=== PATIENT | female | born 1985 | race Two or more races ===

== ENCOUNTER 2018-11-06 11:36 | Emergency (ER) | payer MEDICAID ==
[~2018-11-06] VITALS: Ht 162.6 cm; Wt 80.7 kg
[2018-11-06 11:37] VITALS: BP 119/67
== END 2018-11-06 13:57 | disposition home or self-care (01) ==
LOC: ER 11:36
DX: J02.9 Acute pharyngitis, unspecified (principal)

== ENCOUNTER 2019-09-01 14:32 | Emergency (ER) | payer MEDICAID ==
[~2019-09-01] VITALS: Ht 162.6 cm; Wt 84.4 kg
[2019-09-01 14:54] VITALS: BP 108/62
[2019-09-01 16:35] LABS: Urine Bacteria FEW /hpf (None Seen); Urine Blood 3+ /uL (Negative); Urine Mucus FEW (None Seen); Urine Specific Gravity 1.017 (1.001-1.035); Urine WBC 43 /hpf (0 - 5)
== END 2019-09-01 19:44 | disposition home or self-care (01) ==
LOC: ER 14:37
DX: N39.0 Urinary tract infection, site not specified (principal); T83.32XA Displacement of intrauterine contraceptive device, initial encounter; Y84.9 Medical procedure, unspecified as the cause of abnormal reaction of the patient, or of later complication, without mention of misadventure at the time of the procedure; Y92.89 Other specified places as the place of occurrence of the external cause
CPT/HCPCS: 76830; 76856; 81001; 81025

== ENCOUNTER 2019-11-30 04:26 | Emergency (ER) | payer MEDICAID ==
[~2019-11-30] VITALS: Ht 160 cm; Wt 88.9 kg
[2019-11-30 05:28] VITALS: BP 116/77
[2019-11-30 07:31] LABS: Basophils # (auto) 0 10 ^3/uL (0-0.2); Basophils % (auto) 0.2 % (0.0-2.0); Eosinophils # (auto) 0 10 ^3/uL (0-0.8); Eosinophils % (auto) 0.3 % (0.0-7.0); Hematocrit 42.3 % (36.0-46.0); Hemoglobin 13.8 g/dL (12.2-16.2); Lymphocytes # (auto) 1.3 10 ^3/uL (0.4-5.4); Lymphocytes % (auto) 12.9 % (10.0-50.0); Mean Corpuscular Hemoglobin 28.1 pg (28.0-32.0); Mean Corpuscular Hgb Conc. 32.7 g/dL (32.0-36.0); Mean Corpuscular Volume 86.1 fL (80.0-100.0); Monocytes # (auto) 0.7 10 ^3/uL (0-1.3); Monocytes % (auto) 6.6 % (0.0-12.0); Neutrophils # (auto) 8.1 10 ^3/uL (1.6-8.6); Platelet Count (auto) 386 10^3/uL (140-450); Red Blood Cells 4.91 10^6/uL (4.0-5.20); Red Cell Distribution Width 14.8 % (11.8-14.3); White Blood Cell 10.1 10^3/uL (4.4-10.8)
[2019-11-30 07:47] LABS: Albumin 3.8 g/dL (3.4-5.0); Anion Gap 3 (5-15); Blood Urea Nitrogen 7 mg/dL (7-18); Calcium 8.8 mg/dL (8.5-10.1); Carbon Dioxide 29 mmol/L (21-32); Chloride 106 mmol/L (98-107); Glucose 105 mg/dL (74-106); Magnesium 2.7 mg/dL (1.6-2.6); Potassium 4.4 mmol/L (3.5-5.1); Sodium 138 mmol/L (136-145)
[2019-11-30 07:52] LABS: Alanine Aminotransferase 24 U/L (13-56); Alkaline Phosphatase 108 U/L (45-117); Aspartate Aminotransferase 18 U/L (15-37); BUN/Creatinine Ratio 8.4; Bilirubin, Total 0.9 mg/dL (0.2-1.0); GFR African American 102 mL/min; GFR Non-African American 85 mL/min; Total Protein 8.6 g/dL (6.4-8.2)
[2019-11-30] MEDS ORDERED: cefTRIAXone SOD 1,000 MG VL IM ONE (08:30)
[2019-11-30] MEDS ORDERED: methylPREDNISolone SOD SUCC 125 MG/2 ML VL IM ONE (08:30)
== END 2019-11-30 09:44 | disposition home or self-care (01) ==
LOC: ER 04:26
DX: R22.1 Localized swelling, mass and lump, neck (principal); R53.1 Weakness
CPT/HCPCS: 36415; 80053; 81002; 81025; 83735; 83880; 84443; 84484; 85025; 87804; 87880; 96372; 99284; J0696; J2930

== ENCOUNTER 2021-02-27 19:37 | Emergency (ER) | payer MEDICAID ==
[~2021-02-27] VITALS: Ht 162.6 cm; Wt 79.4 kg
[2021-02-27 20:06] VITALS: BP 115/76
[2021-02-27] MEDS ORDERED: KETOROLAC TROMETH 60MG/2ML VIAL IM ONE (21:30)
[2021-02-27] MEDS ORDERED: methylPREDNISolone SOD SUCC 125 MG/2 ML VL IM ONE (21:30)
== END 2021-02-27 22:33 | disposition home or self-care (01) ==
LOC: ER 19:40
DX: G44.209 Tension-type headache, unspecified, not intractable (principal); M62.838 Other muscle spasm; E66.9 Obesity, unspecified; F32.9 Major depressive disorder, single episode, unspecified; Z68.30 Body mass index [BMI] 30.0-30.9, adult
CPT/HCPCS: 72040; 96372; 99284; J1885; J2930

== ENCOUNTER 2022-01-28 09:35 | Emergency (ER) | payer MEDICAID ==
[~2022-01-28] VITALS: Ht 162.6 cm; Wt 81.2 kg
[2022-01-28 11:28] VITALS: BP 114/67
== END 2022-01-28 12:33 | disposition home or self-care (01) ==
LOC: ER 09:35
DX: R50.9 Fever, unspecified (principal); R51.9 Headache, unspecified; Z86.2 Personal history of diseases of the blood and blood-forming organs and certain disorders involving the immune mechanism; Z20.822 Contact with and (suspected) exposure to COVID-19
CPT/HCPCS: 36415

== ENCOUNTER 2025-03-22 08:15 | Emergency (ER) | payer MEDICAID ==
[~2025-03-22] VITALS: Ht 160 cm; Wt 84.0 kg
--- NOTE | 2025-03-22 08:53 | ED.PDOC ---
General HPI Comments 40 year old female presents to the ED with a chief complaint of pelvic pain onset 1 month. Patient states she has been experiencing pelvic pain for the past month, has an appointment with PCP in May 2025. Patient states for the past week, she noticed tingling sensation radiating to bilateral legs. PMhx anemia, depression. Denies fever, chills, nausea, vomiting, abdominal pain, chest pain, shortness of breath, headache, dizziness. No other symptoms or modifying factors present at this time. Chief Complaint: Pelvic Pain Time Seen by MD: 08:40 Primary Care Provider: OUT OF TOWN Reviewed notes: Medications, Allergies Allergies: Coded Allergies: NO KNOWN ALLERGIES (Unverified , 09/01/19) Information Source: Patient Mode of Arrival: Ambulatory Severity: Moderate Timing: Months Duration: Since onset Prehospital treatment: None Onset: Spontaneous Symptoms: Other History of: None Location: None Past Medical History PAST MEDICAL HISTORY: Anemia, Depression Surgical History: Hysterectomy [employer] History: No Pertinent [employer] History Family History Family History: Unknown Social History Smoker: Non-Smoker Alcohol: Denies ETOH Use Drugs: Denies Drug Use Lives In: Home Constitutional: denies: chills, diaphoresis, fatigue, fever, malaise, sweats, weakness, others EENTM: denies: blurred vision, double vision, ear bleeding, ear discharge, ear drainage, ear pain, ear ringing, eye pain, eye redness, hearing loss, mouth pain, mouth swelling, nasal discharge, nose bleeding, nose congestion, nose pain, photophobia, tearing, throat pain, throat swelling, voice changes, others Respiratory: denies: cough, hemoptysis, orthopnea, SOB at rest, shortness of breath, SOB with excertion, stridor, wheezing, others Cardiovascular: denies: chest pain, dizzy spells, diaphoresis, Dyspnea on exertion, edema, irregular heart beat, left arm pain, lightheadedness, palpitations, PND, syncope, others Gastrointestinal: denies: abdomen distended, abdominal pain, blood streaked bowels, constipated, diarrhea, dysphagia, difficulty swallowing, hematemesis, melena, nausea, poor appetite, poor fluid intake, rectal bleeding, rectal pain, vomiting, others Genitourinary: reports: pain (pelvic ); denies: abnormal vagina bleeding, burning, dyspareunia, dysuria, flank pain, frequency, hematuria, incontinence, , vagina discharge, urgency, others Neurological: reports: tingling (bilateral legs); denies: dizziness, fainting, headache, left sided numbness, left sided weakness, numbness, paresthesia, pre- existing deficit, right sided numbness, right sided weakness, seizure, speech problems, tremors, weakness, others Musculoskeletal: denies: back pain, gout, joint pain, joint swelling, muscle pain, muscle stiffness, neck pain, others Integumetry: denies: bruises, change in color, change in hair/nails, dryness, laceration, lesions, lumps, rash, wounds, others Allergic/Immunocompromised: denies: Difficulty Healing, Frequent Infections, Hives, Itching, others Hematologic/Lymphatic: denies: anemia, blood clots, easy bleeding, easy bruising, swollen glands, others Endocrine: denies: excessive hunger, excessive sweating, excessive thirst, excessive urination, flushing, intolerance to cold, intolerance to heat, unexplained weight gain, unexplained weight loss, others Psychiatric: denies: anxiety, bipolar disorder, depression, hopeless, panic disorder, schizophrenia, sleepless, suicidal, others All Other Systems: Reviewed and Negative Physical Exam General Appearance: Moderate Distress, Normal HEENT: Normal ENT Inspection, Pharynx Normal, TMs Normal Neck: Full Range of Motion, Non-Tender, Normal, Normal Inspection Respiratory: Chest Non-Tender, Lungs Clear, No Accessory Muscle Use, No Respiratory Distress, Normal Breath Sounds Cardiovascular: No Edema, No JVD, No Murmur, No Gallop, Normal Peripheral Pulses, Regular Rate/Rhythm Breast Exam: Deferred Gastrointestinal: No Organomegaly, Non Tender, No Pulsatile Mass, Normal Bowel Sounds, Soft Genitalia: Deferred Pelvic: Deferred Rectal: Deferred Extremities: No calf tenderness, Normal capillary refill, Normal inspection, Normal range of motion, Non-tender, No pedal edema Musculoskeletal : Apperance: Normal Neurologic: Alert, 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 Was a procedure done?: No Differential Diagnosis Kidney stone (Female): Musculoskeletal pain, Urinary obstruction, Urolithiasis X-Ray, Labs, Meds, VS Vital Signs Date Time Temp Pulse Resp B/P (MAP) Pulse Ox O2 Delivery O2 Flow Rate FiO2 03/22/25 09:22 98.3 65 16 111/69 (83) 97 98.3 03/22/25 08:18 97.9 66 18 129/75 97 97.9 Lab Test 03/22/25 09:04 Range/Units Urine Color Yellow Yellow Urine Clarity Clear Clear Urine pH 5.5 5.0-9.0 Urine Specific [place] 1.024 1.001-1.035 Urine Protein Negative Negative Urine Ketones Negative Negative Urine Blood 2+ H Negative /uL Urine Nitrite Negative Negative Urine Bilirubin Negative Negative Urine Urobilinogen Normal Negative mg/dL Urine Leukocyte Esterase Negative Negative /uL Urine RBC 5 0 - 4 /hpf Urine Microscopic WBC 1 0-5 /HPF Urine Squamous Epithelial Cells Few <5 /hpf Urine Bacteria None seen None Seen /hpf Urine Mucus Few None Seen Urine Glucose Normal Normal mg/dL [place] [id number] Ph: [phone] DIAGNOSTIC IMAGING Diagnostic Imaging Report : [id number] Signed PATIENT: DIXON CARDENAS ACCT: [id number] UNIT: [id number] : 1985 LOC: ER ROOM / BED: / AGE / SEX: 40 / F ADM STATUS: REG ER SERVICE [id number] ORDERING PHYSICIAN: THO LEW MD PROCEDURE(s): ABPL - CT AB PEL WO CON-NO ORAL OR IV REASON: suprapubic ORDER NUMBER(s): [id number], ACCESSION NUMBER(s): [id number] Exam: CT CT AB PEL WO CON-NO ORAL OR IV History: Suprapubic Comparison Study: None Technique: Multidetector spiral CT of the abdomen and pelvis was performed from lung bases to pubic symphysis. Imaging was performed without intravenous contrast. Coronal and sagittal multiplanar reformats were obtained from the axial data set by the technologist. Radiation Dose : 1. Abdomen/Pelvis: CTDIvol 13.41 mGy, DLP 780.7 mGy*cm. Findings: Evaluation of vasculature and solid organs is limited due to lack of intravenous contrast use. Lung Bases: Lung bases are clear. Visualized portions of the heart and pericardium are unremarkable. Liver: The liver is normal in size. No focal lesions. Diffusely hypoattenuating liver parenchyma consistent with hepatic steatosis. Gallbladder and Biliary Tree: The gallbladder is unremarkable. No intrahepatic or extrahepatic biliary ductal dilatation. Spleen: Unremarkable Pancreas: The pancreas is grossly unremarkable. Adrenal Glands: Unremarkable Kidneys: Kidneys are unremarkable without calculi or hydronephrosis. GI tract: The stomach is grossly normal in appearance. No evidence of small bowel wall thickening or abnormal dilatation to suggest bowel obstruction. There is colonic diverticulosis without acute diverticulitis. The appendix is not visualized, however no inflammatory changes in the right lower quadrant to suggest acute appendicitis. Peritoneum/mesentery/retroperitoneum. No evidence of free intraperitoneal air. No ascites. No evidence of suspicious lymphadenopathy. Abdominal Wall: Unremarkable. Vasculature: The visualized abdominal aorta is normal in size and caliber. Evaluation of abdominal and pelvic vessels is limited due to lack of intravenous contrast. Urinary Bladder: Grossly unremarkable for degree of distention. Pelvic Organs: Unremarkable Musculoskeletal: Age-indeterminate L1 compression deformity. Soft tissues: There is a fat containing umbilical hernia. IMPRESSION: 1. No acute abdominal or pelvic findings. 2. Age-indeterminate L1 compression deformity. 3. Colonic diverticulosis without acute diverticulitis. 4. Hepatic steatosis. ATED BY: ARLYN NATHAN MD DICTATED DATE/TIME: 03/22/25937 SIGNED BY: ARLYN NATHAN MD SIGNED DATE/TIME: 03/22/25937 CC: Patient alert. Came in because abdominal discomfort for many months pain Vitals stable. Answering questions. CT of the abdomen reviewed does not show any acute changes. Urinalysis within normal limits. Explained to the patient. Was told to follow up with her primary care physician. Was told to come back if there is any problem. Time of 1ST Reevaluation: 09:10 Reevaluation 1ST: Improved Patient Education/Counseling: Diagnosis, Treatment, Prognosis Family Education/Counseling: No Family Present SEPSIS Sepsis Screen Date sepsis recognized/suspect: Mar 22, 2025 Time Sepsis recognized/suspect: 812 Recent Procedure: No On Antibiotic Therapy: No Respiratory Rate >20: No Heart Rate >90: No Temp<36 C (96.8 F) or >38.3 C: No SBP <90 or MAP <65 mmHG: No New Acute Mental Status Change: No Is the patient on CPAP, BIPAP,: No Physician Orders Ct Ab Pel Wo Con-No Oral Or Iv (03/22/25 08:43) Vital Signs Date Time Temp Pulse Resp B/P (MAP) Pulse Ox O2 Delivery O2 Flow Rate FiO2 03/22/25 09:22 98.3 65 16 111/69 (83) 97 98.3 03/22/25 08:18 97.9 66 18 129/75 97 97.9 Departure 1 Departure Time of Disposition: 10:53 Impression: Primary Impression: Ileus Disposition: 01 HOME / SELF CARE / HOMELESS Condition: Good Discharged With: Self Critical Care Note Critical Care Time?: No Stability Stability form required: No Heart Score Heart Score: Heart Score Response (Comments) Value History N/A 0 EKG N/A 0 Age N/A 0 Risk Factors N/A 0 Troponin N/A 0 Total 0 I personally scribed for THO LEW MD ([email or web address]) on 03/22/25 at 08:53. Electronically submitted by Ninfa Harrison ([email or web address]). I personally scribed for THO LEW MD ([email or web address]) on 03/22/25 at 10:17. Electronically submitted by Ninfa Harrison ([email or web address]). THO LEW MD Mar 22, 2025 08:53
[2025-03-22 09:17] LABS: Urine Protein, UAD Negative (Negative)
--- NOTE | 2025-03-22 09:40 | DVH ---
Exam: CT CT AB PEL WO CON-NO ORAL OR IV History: Suprapubic Comparison Study: None Technique: Multidetector spiral CT of the abdomen and pelvis was performed from lung bases to pubic s ymphysis. Imaging was performed without intravenous contrast. Coronal and sagittal multiplanar reform ats were obtained from the axial data set by the technologist. Radiation Dose : 1. Abdomen/Pelvis: CTDIvol 13.41 mGy, DLP 780.7 mGy*cm. Findings: Evaluation of vasculature and solid organs is limited due to lack of intravenous contrast use. Lung Bases: Lung bases are clear. Visualized portions of the heart and pericardium are unremarkable. Liver: The liver is normal in size. No focal lesions. Diffusely hypoattenuating liver parenchyma con sistent with hepatic steatosis. Gallbladder and Biliary Tree: The gallbladder is unremarkable. No intrahepatic or extrahepatic biliar y ductal dilatation. Spleen: Unremarkable Pancreas: The pancreas is grossly unremarkable. Adrenal Glands: Unremarkable Kidneys: Kidneys are unremarkable without calculi or hydronephrosis. GI tract: The stomach is grossly normal in appearance. No evidence of small bowel wall thickening or abnormal dilatation to suggest bowel obstruction. There is colonic diverticulosis without acute diver ticulitis. The appendix is not visualized, however no inflammatory changes in the right lower quadran t to suggest acute appendicitis. Peritoneum/mesentery/retroperitoneum. No evidence of free intraperitoneal air. No ascites. No evidenc e of suspicious lymphadenopathy. Abdominal Wall: Unremarkable. Vasculature: The visualized abdominal aorta is normal in size and caliber. Evaluation of abdominal a nd pelvic vessels is limited due to lack of intravenous contrast. Urinary Bladder: Grossly unremarkable for degree of distention. Pelvic Organs: Unremarkable Musculoskeletal: Age-indeterminate L1 compression deformity. Soft tissues: There is a fat containing umbilical hernia. IMPRESSION: 1. No acute abdominal or pelvic findings. 2. Age-indeterminate L1 compression deformity. 3. Colonic diverticulosis without acute diverticulitis. 4. Hepatic steatosis.
[2025-03-22 11:34] VITALS: BP 117/75; PULSE 64; RESP 16; TEMP 98.6; O2SAT 96
== END 2025-03-22 11:38 | disposition home or self-care (01) ==
LOC: ER 08:15
DX: K56.7 Ileus, unspecified (principal); Z90.710 Acquired absence of both cervix and uterus; Z79.899 Other long term (current) drug therapy
CPT/HCPCS: 74176; 81001